=== PATIENT | male | born 1985 | race Caucasian/White ===

== ENCOUNTER 2016-10-15 03:24 | Emergency (ER) | payer MEDICAID, OTHER ==
[~2016-10-15] VITALS: Ht 167.6 cm; Wt 74.5 kg
[2016-10-15 03:34] VITALS: Ht 167.6 cm; Wt 74.5 kg
[2016-10-15] MEDS ORDERED: CIPR500T4 PO (03:58)
[2016-10-15] MEDS ORDERED: TERB30CR15 TOP (03:58)
[2016-10-15] MEDS ORDERED: [UNRECOGNIZED DRUG - CODE] IRR (03:58)
[2016-10-15] MEDS ORDERED: CIPROFLOXACIN 500 MG TAB PO ONE (04:00)
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
== END 2016-10-15 04:26 | disposition home or self-care (01) ==
LOC: FTE 03:24
DX: L03.031 Cellulitis of right toe (principal); L03.032 Cellulitis of left toe; F17.210 Nicotine dependence, cigarettes, uncomplicated
CPT/HCPCS: 99283

== ENCOUNTER 2018-11-22 22:25 | Emergency (ER) | payer MEDICAID ==
[~2018-11-22] VITALS: Ht 170.2 cm; Wt 71.4 kg
[~2018-11-22 22:25] MED LIST: ACET1TAB40 PO; CEPH-443 PO; CIPR500T4 PO; IBUP-1542 PO; TERB30CR22 TOP; [UNRECOGNIZED DRUG - CODE] IRR
[2018-11-22 22:55] VITALS: BP 123/71; PULSE 65; RESP 16; Ht 170.2 cm; Wt 71.4 kg
[2018-11-23] MEDS ORDERED: IBUPROFEN 600 MG TAB PO ONE (01:00)
[2018-11-23] MEDS ORDERED: HYDROCODONE/APAP (5/325) TAB PO ONE (01:00)
[2018-11-23] MEDS ORDERED: CEPHALEXIN 500 MG CAP PO ONE (01:00)
== END 2018-11-23 01:59 | disposition home or self-care (01) ==
LOC: FTE 22:25
DX: K08.9 Disorder of teeth and supporting structures, unspecified (principal)
CPT/HCPCS: Z7502; Z7610; 99283